=== PATIENT | female | born 1980 | race Caucasian/White ===

== ENCOUNTER 2020-09-08 09:37 | Inpatient (IN) ==
[2020-09-08] MEDS ORDERED: IOPAMIDOL 100 ML BOTTLE IV ONE (09:38)
[2020-09-08] MEDS ORDERED: KETOROLAC 30 MG/ML VIAL IV ONE (09:53)
[2020-09-08] MEDS ORDERED: 0.9 % SODIUM CHLORIDE 1,000 ML IV ONE (09:53)
--- NOTE | 2020-09-08 09:56 | Emergency Department Note ---
HPI General Chief complaint: Flank Pain Stated complaint: Flank pain, fever- started Time Seen by Provider: 09/08/20 09:40 Source: patient Mode of arrival: ambulatory History of Present Illness HPI Narrative: Narrative: 40-year-old female patient presents emergency department chief complaint of worsening right flank/lower quadrant abdominal pain x3 days. Patient admits to history of dull aching sensation to her right low back since late June. She was seen by her primary care provider who did a urinalysis that came back "good". She did not think much of it until this past when the pain increased exponentially. It changed character to more of a stabbing type pain that radiated into her right lower quadrant. She was evaluated in the [facility] yesterday (Thursday). The provider at that time did a urinalysis that did show clear yellow urine with positive proteinuria, positive nitrites, positive WBCs, small amount of microscopic blood, positive bacteria, positive mucus, this is being sent for a culture and sensitivity. She was started on Macrobid 100 mg twice daily for suspected UTI. Unfortunately, she mentions that her symptoms have worsened. She continues to have a fever. She is very apprehensive and mentions to me "I am really scared. There is something wrong". She denies history of renal calculi. She denies possibility being . ROS: Admits to systemic illness, fever, sweats, chills. Denies runny nose, sinus congestion, or cough. Denies shortness of breath. Denies retrosternal chest pain or palpitations. Admits to abdominal pain. Denies nausea, vomiting, or diarrhea. Patient admits she has not had a bowel movement in the last 2 days which is unusual for her. Denies gross hematuria or dysuria. Denies generalized or focal weakness. Related Data Previous Rx's Medication Instructions Recorded nitrofurantoin 1 cap PO Q12H 7 Days #14 cap 09/07/20 monohydrate/macrocrystals 100 mg capsule Allergies Allergy/AdvReac Type Severity Reaction Status Date / Time codeine Allergy Mild Vomiting Verified 09/07/20 08:01 Review of Systems ROS ROS Narrative: Narrative: All systems ED: reviewed and negative except as stated. [facility] Narrative Patient History Narrative: Narrative: Medical/Surgical/Family History All Active Problems (Updated 09/08/20 @ 12:48 by Daniel Álvarez PA-C) Pyelonephritis (Acute) Flank pain (Acute) UTI (urinary tract infection) (Acute) Viral syndrome (Acute) Nausea & vomiting (Acute) Medical History Flank pain (Acute) Nausea & vomiting (Acute) UTI (urinary tract infection) (Acute) Viral syndrome (Acute) Social History Smoking Status: Unknown if ever smoked Exam Narrative Narrative: Narrative: General General appearance: Present other (Well-developed, well-nourished, obese 62, 40-year-old female patient laying right lateral recumbent on the emergency room gurney obviously very uncomfortable and anxious. She is febrile with temperature 100.1 and mildly tachycardic with a heart rate of 103. She does meet SIRS criteria. Other vital signs are normal.) Head Head: Present normocephalic Eye Eye: Present normal appearance, PERRL and EOMI; Absent scleral icterus and conjunctival injection ENT ENT: Present normal oropharynx and mucous membranes moist Neck Neck: Present trachea midline; Absent lymphadenopathy Chest Chest: Present symmetric chest wall rise Respiratory Respiratory: Present normal lung sounds bilaterally; Absent respiratory distress, wheezes, stridor, accessory muscle use and prolonged expiratory phase Cardiovascular Cardiovascular: Present regular rate and normal rhythm; Absent systolic murmur and diastolic murmur Adbominal Abdominal: Present soft, tenderness, guarding, normal bowel sounds and tenderness at McBurney's Point; Absent distention, rebound, rigidity, organomegaly, psoas sign, obturator sign, heel tap sign and mass Expanded Abdominal Abdominal Tenderness: Present RLQ and moderate Extremities Extremities: Present normal inspection, full ROM and normal capillary refill; Absent pedal edema Back Back: Present normal inspection, full ROM and CVA tenderness (R); Absent CVA tenderness (L) Back 1 view image: 1. Area of pain during palpation. Neurological Neurological: Present alert, oriented X3 and normal gait; Absent motor sensory deficit Psychiatric Psychiatric: Present normal affect, anxious and tearful Skin Skin: Present warm (WNL), dry and normal color Course Course Course Narrative: The differential diagnosis of lower abdominal pain in the adult patient includes the following: Appendicitis, diverticulitis, nephrolithiasis, pyelonephritis, acute urinary retention, cystitis, infectious colitis. Patient presents now with 3-day history of right-sided flank/abdominal pain. She had evidence of UTI on exam yesterday. However, she does present with symptoms concerning for either pyelonephritis or renal stone. We are going to repeat the UA and get a urine test prior to imaging. We will also get other screening laboratory studies. We are going to get a contrast-enhanced CT scan of the patient's abdomen/pelvis looking for cause of her symptoms. Patient was given normal saline 1000 mL of the bolus. Patient was also given Toradol 30 mg IVP for pain. Reevaluation(s) Reevaluation #1: A review the patient's diagnostics of the following: BC WBC 14.7, all others normal limits. Lactic acid 1.6. CMP sodium 132, glucose 140, AST 40, all others normal limits. Procalcitonin 0.41. Urinalysis showing hazy yellow urine specific gravity 1.019, positive proteinuria, positive ketones, positive nitrites, positive urobilinogen, positive RBC, positive WBC, many bacteria, and mucus. Contrast-enhanced CT scan of the abdomen/pelvis showing findings consistent with right renal acute focal nephritis. There is also noted benign renal cyst. The appendix is not well-visualized there is no overt evidence of appendicitis. Upon reevaluation patient is resting a bit more comfortably. She does mention that the morphine was helpful. After reviewing the data I discussed these findings with the patient. She has the development of focal nephritis and likely developing pyelonephritis. Due to symptoms and significant worsening over the last 24hours is best to try to admit the patient here for ongoing care. Knowing this, I reached out to our hospitalist (Dr. Black) to discuss the case with him. Time: 12:21 Reevaluation #2: At this time Dr. Black says he is happy to admit the patient here to our facility. He did recommend starting the patient on Rocephin as well as vancomycin to broaden the antibiotic coverage. Patient was started on Rocephin 2 g in conjunction with vancomycin 1500 mg IV. At this time patient is resting more comfortably in emergency room [facility]. She verbalized understanding about the admission. All further treatment decisions, modalities, and ultimate patient disposition will be carried out by the hospitalist. Vital Signs Vital signs: Vital Signs Temperature 100.1 F H 09/08/20 09:38 Pulse Rate 103 H 09/08/20 09:38 Respiratory Rate 21 09/08/20 09:38 Blood Pressure 119/69 09/08/20 09:38 Pulse Oximetry (%) 97 09/08/20 09:38 Temperature 100.4 F H 09/08/20 14:49 Pulse Rate 104 H 09/08/20 14:49 Respiratory Rate 16 09/08/20 14:49 Blood Pressure 119/69 09/08/20 14:49 Pulse Oximetry (%) 99 09/08/20 14:49 MDM MDM Narrative Medical decision making narrative: Narrative: Lab Data Lab results reviewed: Yes I reviewed the patient's lab results. Result diagrams: 09/08/20 10:09 09/08/20 10:09 Labs: Lab Results 09/08/20 09/08/20 09/08/20 Range/Units 10:09 10:09 10:09 WBC 14.7 H (4.5-11.0) K/mcL RBC 4.50 (4.00-5.20) M/mcL Hgb 14.8 (12.0-15.0) g/dL Hct 43.7 (36.0-48.0) % MCV 97.1 (80.0-100.0) fL MCH 32.9 (26.0-34.0) pg MCHC 33.9 (31.0-36.0) g/dL RDW 12.3 (11.5-14.5) % Plt Count 232 (140-440) K/mcL MPV 9.2 (7.4-10.4) fL Neut % (Auto) 88.6 H (38.0-78.0) % Lymph % (Auto) 4.6 L (15.0-49.0) % [place] % (Auto) 6.5 (1.0-12.0) % Eos % (Auto) 0 (0.0-7.0) % Baso % (Auto) 0.3 (0.0-2.0) % Lymph # (Auto) 0.68 L (1.50-4.80) K/mcL [place] # (Auto) 0.96 H (0.10-0.90) K/mcL Eos # (Auto) 0 (0.00-0.70) K/mcL Baso # (Auto) 0.04 (0.00-0.20) K/mcL Absolute Neutrophils 13.02 H (1.80-8.00) K/mcL VBG Lactic Acid 1.6 (0.5-2.0) mmol/L Sodium 132 L (133-145) mmol/L Potassium 4.0 (3.3-5.1) mmol/L Chloride 97 (96-108) mmol/L Carbon Dioxide 24 (22-30) mmol/L Anion Gap 11.0 (8.0-16.0) BUN 10 (6-20) mg/dL Creatinine 0.8 (0.6-1.1) mg/dL GFR Calculation 93 Glucose 140 H (70-105) mg/dL Calcium 8.9 (8.6-10.4) mg/dL Total Bilirubin 0.6 (0.1-1.0) mg/dL AST 40 H (<32) U/L ALT 30 (<40) U/L Alkaline Phosphatase 67 (39-117) U/L Total Protein 7.1 (5.9-8.4) gm/dL Albumin 3.9 (3.2-5.2) gm/dL Globulin 3.2 (2.2-3.7) gm/dL Albumin/Globulin Ratio 1.2 (1.0-2.3) Procalcitonin (<0.10) ng/mL Urine Color Urine Appearance (Clear) Urine pH (5.0-9.0) Ur Specific [place] (1.000-1.035) Urine Protein (Negative) mg/dL Urine Glucose (UA) (Negative) mg/dL Urine Ketones (Negative) mg/dL Urine Occult Blood (Negative) mg/dL Urine Nitrate (Negative) Urine Bilirubin (Negative) mg/dL Urine Urobilinogen mg/dL Ur Leukocyte Esterase (Negative) /ug Urine RBC (0-3) /hpf Urine WBC (0-4) /hpf Ur Squamous Epith Cells (0-4) /hpf Ur Transition Epith Cell (0-2) /hpf Urine Bacteria (0) /hpf Hyaline Casts (0-2) /lph Urine Mucus (None) /hpf Ur Culture Indicated? 09/08/20 09/08/20 Range/Units 10:09 11:00 WBC (4.5-11.0) K/mcL RBC (4.00-5.20) M/mcL Hgb (12.0-15.0) g/dL Hct (36.0-48.0) % MCV (80.0-100.0) fL MCH (26.0-34.0) pg MCHC (31.0-36.0) g/dL RDW (11.5-14.5) % Plt Count (140-440) K/mcL MPV (7.4-10.4) fL Neut % (Auto) (38.0-78.0) % Lymph % (Auto) (15.0-49.0) % [place] % (Auto) (1.0-12.0) % Eos % (Auto) (0.0-7.0) % Baso % (Auto) (0.0-2.0) % Lymph # (Auto) (1.50-4.80) K/mcL [place] # (Auto) (0.10-0.90) K/mcL Eos # (Auto) (0.00-0.70) K/mcL Baso # (Auto) (0.00-0.20) K/mcL Absolute Neutrophils (1.80-8.00) K/mcL VBG Lactic Acid (0.5-2.0) mmol/L Sodium (133-145) mmol/L Potassium (3.3-5.1) mmol/L Chloride (96-108) mmol/L Carbon Dioxide (22-30) mmol/L Anion Gap (8.0-16.0) BUN (6-20) mg/dL Creatinine (0.6-1.1) mg/dL GFR Calculation Glucose (70-105) mg/dL Calcium (8.6-10.4) mg/dL Total Bilirubin (0.1-1.0) mg/dL AST (<32) U/L ALT (<40) U/L Alkaline Phosphatase (39-117) U/L Total Protein (5.9-8.4) gm/dL Albumin (3.2-5.2) gm/dL Globulin (2.2-3.7) gm/dL Albumin/Globulin Ratio (1.0-2.3) Procalcitonin 0.41 H (<0.10) ng/mL Urine Color Yellow Urine Appearance Hazy A (Clear) Urine pH 6.0 (5.0-9.0) Ur Specific [place] 1.019 (1.000-1.035) Urine Protein 30 A (Negative) mg/dL Urine Glucose (UA) Negative (Negative) mg/dL Urine Ketones 20 A (Negative) mg/dL Urine Occult Blood 0.20 (Negative) mg/dL Urine Nitrate Pos A (Negative) Urine Bilirubin Negative (Negative) mg/dL Urine Urobilinogen 4.0 A mg/dL Ur Leukocyte Esterase Negative (Negative) /ug Urine RBC 8 H (0-3) /hpf Urine WBC 12 H (0-4) /hpf Ur Squamous Epith Cells 3 (0-4) /hpf Ur Transition Epith Cell < 1 (0-2) /hpf Urine Bacteria Mod A (0) /hpf Hyaline Casts 2 (0-2) /lph Urine Mucus Many A (None) /hpf Ur Culture Indicated? No ED POC Tests ED POC Tests: BLAS - Influenza A Negative BLAS - Influenza B Negative BLAS - SARS Antigen Negative HCG POC Results Negative Radiology Data Radiology results reviewed: Yes I reviewed the patient's radiology results. Radiology results narrative: Ordering Physician: Daniel Álvarez PA-C Date of Service: 09/08/20 Procedure(s): CT abdomen pelvis w con Accession Number(s): [id number] INDICATION: Right flank/RLQ pain X 3 days. COMPARISON: None. TECHNIQUE: Axial images were obtained through the abdomen and pelvis. Sagittally and coronally reformatted images. 80 mL Isovue 370 injected intravenously. FINDINGS: Lung bases:Negative. No pulmonary parenchymal nodule. No pleural fluid or pericardial fluid Liver:Negative. No focal intrahepatic mass. No focal abnormality. Liver contour is smooth. No evidence for cirrhosis Gallbladder, bilary:Gallbladder is not present consistent with cholecystectomy. No dilated bile ducts Spleen:No splenomegaly. Normal enhancement of splenic and portal veins. Pancreas:No pancreatic mass. No peripancreatic abnormality Adrenal glands:Negative Kidneys, ureters, bladder: There are benign left renal cysts. No solid mass. No hydronephrosis. No obstructing or nonobstructing calculi. There is a right midpole anterior cyst measuring 8 mm. There is an irregular area of low density in the right kidney. This is mid to lower pole and medially and posteriorly located. Appearance is consistent with acute focal nephritis (lobar nephronia). There is no hydronephrosis or pyelonephrosis. No obstructing or nonobstructing calculi There is no hydroureter. No ureteral stone No bladder calculi or detectable mass Gastrointestinal:No detectable colonic mass. There is no diverticulitis. Small bowel is negative. No mechanical small bowel obstruction. Stomach and duodenum are unremarkable Appendix: The appendix is not well visualized. No evidence for appendicitis Vascular:Negative abdominal aorta. Superior mesenteric artery and celiac trunk are normal. Normal opacification of the inferior mesenteric artery Lymphatic:No retroperitoneal or mesenteric adenopathy Mesentery, peritoneum: No free intraperitoneal fluid. No mesenteric or retroperitoneal mass. Reproductive:Uterus is anteflexed. No adnexal mass Musculoskeletal: Degenerative disc disease at L5-S1. No lumbar compression fractures. Sacrum and pelvis are negative. No hip fracture. No abdominal wall or inguinal hernia IMPRESSION: 1. Findings consistent with right renal acute focal nephritis 2. Benign renal cysts 3. Nonvisualization of the appendix. No evidence for appendicitis The exam was performed using radiation dose optimization techniques including, but not limited to, automated exposure control, adjustment of the mA and/or kV according to patient size and use of iterative reconstruction technique. Interpreted and Authenticated by: Kirit Roy 09/08/20 Discharge Plan Patient/Caregiver Discharge Instructions Pt seen by ASSISTED LIVING NURSING DIRECTOR/PA only: Yes Clinical Impression: Pyelonephritis Patient Disposition: Xfer As Inpt ([facility]) Condition: Good Discharge Date/Time: 09/08/20 14:43
[2020-09-08 10:50] LABS: Basophils # (Auto) 0.04 K/mcL (0.00-0.20); Basophils % (Auto) 0.3 % (0.0-2.0); Eosinophils # (Auto) 0 K/mcL (0.00-0.70); Eosinophils % (Auto) 0 % (0.0-7.0); Hematocrit 43.7 % (36.0-48.0); Hemoglobin 14.8 g/dL (12.0-15.0); Lymphocytes # (Auto) 0.68 K/mcL (1.50-4.80); Lymphocytes % (Auto) 4.6 % (15.0-49.0); Mean Cell Volume 97.1 fL (80.0-100.0); Mean Corpuscular HGB Conc 33.9 g/dL (31.0-36.0); Mean Platelet Volume 9.2 fL (7.4-10.4); Monocytes # (Auto) 0.96 K/mcL (0.10-0.90); Monocytes % (Auto) 6.5 % (1.0-12.0); Neutrophils % (Auto) 88.6 % (38.0-78.0); Platelet Count 232 K/mcL (140-440); Red Cell Distribution Width 12.3 % (11.5-14.5); WBC 14.7 K/mcL (4.5-11.0)
[2020-09-08 11:15] LABS: ALT/SGPT 30 U/L (<40); AST/SGOT 40 U/L (<32); Albumin 3.9 gm/dL (3.2-5.2); Albumin/Globulin Ratio 1.2 (1.0-2.3); Alkaline Phosphatase 67 U/L (39-117); Bilirubin,Total 0.6 mg/dL (0.1-1.0); Blood Urea Nitrogen 10 mg/dL (6-20); Calcium 8.9 mg/dL (8.6-10.4); Carbon Dioxide 24 mmol/L (22-30); Chloride 97 mmol/L (96-108); Globulin 3.2 gm/dL (2.2-3.7); Glomerular Filtration Rate 93; Glucose 140 mg/dL (70-105)
--- NOTE | 2020-09-08 11:25 | Cat Scan Report ---
INDICATION: Right flank/RLQ pain X 3 days. COMPARISON: None. TECHNIQUE: Axial images were obtained through the abdomen and pelvis. Sagittally and coronally reformatted images. 80 mL Isovue 370 injected intravenously. FINDINGS: Lung bases:Negative. No pulmonary parenchymal nodule. No pleural fluid or pericardial fluid Liver:Negative. No focal intrahepatic mass. No focal abnormality. Liver contour is smooth. No evidence for cirrhosis Gallbladder, bilary:Gallbladder is not present consistent with cholecystectomy. No dilated bile ducts Spleen:No splenomegaly. Normal enhancement of splenic and portal veins. Pancreas:No pancreatic mass. No peripancreatic abnormality Adrenal glands:Negative Kidneys, ureters, bladder: There are benign left renal cysts. No solid mass. No hydronephrosis. No obstructing or nonobstructing calculi. There is a right midpole anterior cyst measuring 8 mm. There is an irregular area of low density in the right kidney. This is mid to lower pole and medially and posteriorly located. Appearance is consistent with acute focal nephritis (lobar nephronia). There is no hydronephrosis or pyelonephrosis. No obstructing or nonobstructing calculi There is no hydroureter. No ureteral stone No bladder calculi or detectable mass Gastrointestinal:No detectable colonic mass. There is no diverticulitis. Small bowel is negative. No mechanical small bowel obstruction. Stomach and duodenum are unremarkable Appendix: The appendix is not well visualized. No evidence for appendicitis Vascular:Negative abdominal aorta. Superior mesenteric artery and celiac trunk are normal. Normal opacification of the inferior mesenteric artery Lymphatic:No retroperitoneal or mesenteric adenopathy Mesentery, peritoneum: No free intraperitoneal fluid. No mesenteric or retroperitoneal mass. Reproductive:Uterus is anteflexed. No adnexal mass Musculoskeletal: Degenerative disc disease at L5-S1. No lumbar compression fractures. Sacrum and pelvis are negative. No hip fracture. No abdominal wall or inguinal hernia IMPRESSION: 1. Findings consistent with right renal acute focal nephritis 2. Benign renal cysts 3. Nonvisualization of the appendix. No evidence for appendicitis The exam was performed using radiation dose optimization techniques including, but not limited to, automated exposure control, adjustment of the mA and/or kV according to patient size and use of iterative reconstruction technique. Interpreted and Authenticated by: Kirit Roy 09/08/20
[2020-09-08] MEDS ORDERED: morphine 2 MG/ML VIAL IV ONE ×2 (11:31→13:25)
[2020-09-08 11:54] LABS: Appearance,Urine HAZY (Clear); Bacteria,Urine MOD /hpf (0); Bilirubin,Urine Negative (Negative); Color,Urine YELLOW; Culture Indicated,Urine No; Glucose,Urine (UA) Negative (Negative); Ketones,Urine 20 mg/dL (Negative); Leukocyte Esterase,Urine Negative /ug (Negative); Mucus,Urine MANY /hpf; Nitrate,Urine POS (Negative); Protein,Urine 30 mg/dL (Negative); Specific Gravity,Urine 1.019 (1.000-1.035); Urine Hyaline Cast 2 /lph (0-2); Urine RBC 8 /hpf (0-3); Urine Squamous Epithelial Cell 3 /hpf (0-4); Urine Transitional Epi Cells < 1 /hpf (0-2); Urine WBC 12 /hpf (0-4)
[2020-09-08] MEDS ORDERED: LEVOFLOXACIN 750 MG/150 ML BAG IV ONE (12:15)
[2020-09-08] MEDS ORDERED: VANCOMYCIN 1,500 MG in 0.9 % SODIUM CHLORIDE 500 ML IV ONE (12:42)
[2020-09-08] MEDS ORDERED: cefTRIAXone 2 GM in DEXTROSE 5% IN WATER 50 ML IV ONE (12:42)
--- NOTE | 2020-09-08 12:44 | Internal Med History&Physical ---
HPI History of Present Illness Patient information: Note initiated : 09/08/20 at 12:44 pm Service Date, if different from initiated Date: [] Patient: Gala Krishnamurthy a 40 y/o F admitted on for Flank pain, fever- started . Chief Complaint: [ History of present illness: Ms. Krishnamurthy is a 40 year old F fairly healthy with no prior medical issues will start experiencing right-sided flank pain grade 8 out of 10/without radiation and made worse with movement sharp stabbing type along with associated nausea/loss of appetite over the last 5 days. She was seen at the urgent care and was prescribed nitrofurantoin for UTI. However symptoms continued to progress with fever, weakness, pain. With increasing concerns she presents to the ER. Initial work-up was consistent with sepsis with white count 14.7/pyuria. Patient was started on antibiotic coverage after CT abdomen revealed evidence of focal nephritis. Cultures were drawn. Hospital service was consulted. At the time of my evaluation patient is very anxious. She was able to answer most the questions. She endorses history as above. She denies hematuria/blood in her stool/prior hospitalization or any prior health issues. Review of systems 10 point review system was performed and is negative except for ones discussed above PFSH PFSH All Active Problems (Updated 09/08/20 @ 12:48 by Daniel Álvarez PA-C) Pyelonephritis (Acute) Flank pain (Acute) UTI (urinary tract infection) (Acute) Viral syndrome (Acute) Nausea & vomiting (Acute) Medical History Flank pain (Acute) Nausea & vomiting (Acute) UTI (urinary tract infection) (Acute) Viral syndrome (Acute) Social History smoking status: Unknown if ever smoked MEDS/ALLERGIES Home Medications and Allergies Home Medications Medication Instructions Recorded Confirmed Type nitrofurantoin 1 cap PO Q12H 7 Days #14 cap 09/07/20 09/07/20 Rx monohydrate/macrocrystals 100 mg capsule Allergies Allergy/AdvReac Type Severity Reaction Status Date / Time codeine Allergy Mild Vomiting Verified 09/07/20 08:01 EXAM Constitutional Vitals: Temp Pulse Resp BP Pulse Ox 100.1 F H 103 H 21 119/69 97 02/13/21 09:38 09/08/20 09:38 09/08/20 09:38 09/08/20 09:38 09/08/20 09:38 Anxious and in distress Head normocephalic No ear nose discharge Eye movement symmetrical Neck no obvious swelling Nonlabored breathing Nondistended abdomen Skin no suspicious lesion Psych anxious, no hallucination Neuro GCS 15 DATA Data Completed and Pending Labs: Labs from last 24 hours 09/08/20 09/08/20 09/08/20 11:00 10:09 10:09 WBC RBC Hgb Hct MCV MCH MCHC RDW Plt Count MPV Neut % (Auto) Lymph % (Auto) Branch % (Auto) Eos % (Auto) Baso % (Auto) Lymph # (Auto) Branch # (Auto) Eos # (Auto) Baso # (Auto) Absolute Neutrophils VBG Lactic Acid 1.6 Sodium Potassium Chloride Carbon Dioxide Anion Gap BUN Creatinine GFR Calculation Glucose Calcium Total Bilirubin AST ALT Alkaline Phosphatase Total Protein Albumin Globulin Albumin/Globulin Ratio Procalcitonin 0.41 H Urine Color Yellow Urine Appearance Hazy A Urine pH 6.0 Ur Specific [place] 1.019 Urine Protein 30 A Urine Glucose (UA) Negative Urine Ketones 20 A Urine Occult Blood 0.20 Urine Nitrate Pos A Urine Bilirubin Negative Urine Urobilinogen 4.0 A Ur Leukocyte Esterase Negative Urine RBC 8 H Urine WBC 12 H Ur Squamous Epith Cells 3 Ur Transition Epith Cell < 1 Urine Bacteria Mod A Hyaline Casts 2 Urine Mucus Many A Ur Culture Indicated? No 09/08/20 09/08/20 10:09 10:09 WBC 14.7 H RBC 4.50 Hgb 14.8 Hct 43.7 MCV 97.1 MCH 32.9 MCHC 33.9 RDW 12.3 Plt Count 232 MPV 9.2 Neut % (Auto) 88.6 H Lymph % (Auto) 4.6 L [place] % (Auto) 6.5 Eos % (Auto) 0 Baso % (Auto) 0.3 Lymph # (Auto) 0.68 L [place] # (Auto) 0.96 H Eos # (Auto) 0 Baso # (Auto) 0.04 Absolute Neutrophils 13.02 H VBG Lactic Acid Sodium 132 L Potassium 4.0 Chloride 97 Carbon Dioxide 24 Anion Gap 11.0 BUN 10 Creatinine 0.8 GFR Calculation 93 Glucose 140 H Calcium 8.9 Total Bilirubin 0.6 AST 40 H ALT 30 Alkaline Phosphatase 67 Total Protein 7.1 Albumin 3.9 Globulin 3.2 Albumin/Globulin Ratio 1.2 Procalcitonin Urine Color Urine Appearance Urine pH Ur Specific [place] Urine Protein Urine Glucose (UA) Urine Ketones Urine Occult Blood Urine Nitrate Urine Bilirubin Urine Urobilinogen Ur Leukocyte Esterase Urine RBC Urine WBC Ur Squamous Epith Cells Ur Transition Epith Cell Urine Bacteria Hyaline Casts Urine Mucus Ur Culture Indicated? A/P Narrative A/P Narrative: * Severe sepsis secondary to acute nephritis. Start antibiotic coverage. Continue management guidelines. Crystalloid/cultures * Acute nephritis-antibiotic coverage and de-escalate based on urine culture results * Pain management on as needed Toradol/acetaminophen/opioids * Prophylax Heparin Plan * Inpatient admission * Antibiotic coverage * Pain management * Nutrition support Time Spent With Patient Time: Total time spent is greater than 50% in coordination of care (as documented) at patient's floor/unit and/or counseling patient:
[2020-09-08] MEDS ORDERED: POTASSIUM CHLORIDE 20 MEQ PACKET PO PRN (15:02)
[2020-09-08] MEDS ORDERED: ACETAMINOPHEN 325 MG TABLET PO PRN (15:02)
[2020-09-08] MEDS ORDERED: VANCOMYCIN PER PHARMACY IV SCH (15:02)
[2020-09-08] MEDS ORDERED: ONDANSETRON 4 MG/2 ML VIAL IV PRN (15:02)
[2020-09-08] MEDS ORDERED: ONDANSETRON 4 MG ODT TABLET SL PRN (15:02)
[2020-09-08] MEDS ORDERED: POLYETHYLENE GLYCOL 3350 17 GM PACKET PO PRN (15:02)
[2020-09-08] MEDS ORDERED: MAGNESIUM SULFATE 2 GM/50 ML BAG IV PRN (15:02)
[2020-09-08] MEDS ORDERED: BISACODYL 10 MG SUPP.RECT PR PRN (15:02)
[2020-09-08] MEDS: 0.9 % SODIUM CHLORIDE 1,000 ML IV SCH (15:12)
[2020-09-08] MEDS: 0.9 % SODIUM CHLORIDE 10 ML SYRINGE IV SCH ×2 (15:14→22:09)
[2020-09-08] MEDS: KETOROLAC 15 MG/ML VIAL IV PRN (15:19)
[2020-09-08] MEDS: HYDROmorphone 0.5 MG/0.5 ML SYRINGE IV PRN ×2 (16:32→22:36)
[2020-09-08] MEDS ORDERED: HYDROmorphone 0.5 MG/0.5 ML SYRINGE ONE (16:38)
[2020-09-08] MEDS ORDERED: HYDROcodone/APAP 5/325MG TABLET PO ONE (16:38)
[2020-09-08] MEDS: SENNOSIDES/DOCUSATE SODIUM 1 TAB TABLET PO SCH (20:17)
[2020-09-08] MEDS: DOCUSATE SODIUM 100 MG CAPSULE PO SCH (20:17)
[2020-09-08] MEDS: HEPARIN 5,000 UNIT/ML VIAL SQ SCH (20:18)
[2020-09-08] MEDS ORDERED: VANCOMYCIN 1,000 MG in 0.9 % SODIUM CHLORIDE 250 ML IV ONE (22:00)
[2020-09-08] MEDS: HYDROcodone/APAP 5/325MG TABLET PO PRN (22:36)
[2020-09-08] MEDS: MELATONIN 3 MG TABLET PO PRN (22:41)
[2020-09-09] MEDS: ACETAMINOPHEN 650 MG/65 ML BAG IV PRN ×2 (05:32→21:30)
[2020-09-09] MEDS: 0.9 % SODIUM CHLORIDE 10 ML SYRINGE IV SCH ×3 (05:33→21:32)
[2020-09-09 06:43] LABS: Basophils # (Auto) 0.02 K/mcL (0.00-0.20); Basophils % (Auto) 0.3 % (0.0-2.0); Eosinophils # (Auto) 0.01 K/mcL (0.00-0.70); Eosinophils % (Auto) 0.1 % (0.0-7.0); Hematocrit 36.9 % (36.0-48.0); Hemoglobin 12.4 g/dL (12.0-15.0); Lymphocytes # (Auto) 0.83 K/mcL (1.50-4.80); Lymphocytes % (Auto) 11.1 % (15.0-49.0); Mean Cell Volume 97.9 fL (80.0-100.0); Mean Corpuscular HGB Conc 33.6 g/dL (31.0-36.0); Mean Platelet Volume 10.1 fL (7.4-10.4); Monocytes # (Auto) 0.73 K/mcL (0.10-0.90); Monocytes % (Auto) 9.8 % (1.0-12.0); Neutrophils % (Auto) 78.7 % (38.0-78.0); Platelet Count 189 K/mcL (140-440); RBC 3.77 M/mcL (4.00-5.20); Red Cell Distribution Width 12.5 % (11.5-14.5); WBC 7.5 K/mcL (4.5-11.0)
[2020-09-09 07:02] LABS: ALT/SGPT 26 U/L (<40); AST/SGOT 27 U/L (<32); Albumin 3.2 gm/dL (3.2-5.2); Albumin/Globulin Ratio 1.1 (1.0-2.3); Alkaline Phosphatase 61 U/L (39-117); Bilirubin,Direct < 0.2 mg/dL (<0.3); Bilirubin,Total 0.4 mg/dL (0.1-1.0); Blood Urea Nitrogen 8 mg/dL (6-20); Carbon Dioxide 23 mmol/L (22-30); Chloride 101 mmol/L (96-108); Glomerular Filtration Rate 110; Glucose 102 mg/dL (70-105); Lactate Dehydrogenase 179 U/L (135-225); Phosphorous 2.1 mg/dL (2.5-4.5); Triglycerides 114 mg/dL (<150); Uric Acid 3.7 mg/dL (2.5-8.0)
[2020-09-09] MEDS: DOCUSATE SODIUM 100 MG CAPSULE PO SCH (07:56)
[2020-09-09] MEDS: MULTIVIT,THER IRON,CA,FA & MIN 1 TABLET PO SCH (07:56)
[2020-09-09] MEDS: HYDROcodone/APAP 5/325MG TABLET PO PRN ×2 (07:57→12:06)
[2020-09-09] MEDS: HYDROmorphone 0.5 MG/0.5 ML SYRINGE IV PRN (07:58)
[2020-09-09] MEDS: cefTRIAXone 2 GM in DEXTROSE 5% IN WATER 50 ML IV SCH (07:59)
[2020-09-09] MEDS: HEPARIN 5,000 UNIT/ML VIAL SQ SCH ×2 (07:59→21:27)
--- NOTE | 2020-09-09 08:14 | Internal Med Progress Note ---
SUBJECTIVE Subjective Patient information: Note initiated : 09/09/20 at 8:13 am Service Date, if different from initiated Date: [] Patient: Gala Krishnamurthy a 40 y/o F admitted on 09/08/20 for Flank pain, fever- started . Chief Complaint: [] Interval history: History of present illness: Ms. Krishnamurthy is a 40 year old F fairly healthy with no prior medical issues will start experiencing right-sided flank pain grade 8 out of 10/without radiation and made worse with movement sharp stabbing type along with associated nausea/loss of appetite over the last 5 days. She was seen at the urgent care and was prescribed nitrofurantoin for UTI. However symptoms continued to progress with fever, weakness, pain. With increasing concerns she presents to the ER. Initial work-up was consistent with sepsis with white count 14.7/pyuria. Patient was started on antibiotic coverage after CT abdomen revealed evidence of focal nephritis. Cultures were drawn. Hospital service was consulted. At the time of my evaluation patient is very anxious. She was able to answer most the questions. She endorses history as above. She denies hematuria/blood in her stool/prior hospitalization or any prior health issues. 09/09-patient started on antibiotic coverage. Overnight clinically improving. T-max 100.5. White count downtrending now at 7.5 however gram-positive bacteremia on blood cultures. Surveillance cultures pending. Likely source acute nephritis. Remains fairly anxious. Continue Rocephin/vancomycin until sensitivities available. Phosphorus 2.1, start replacement Constitutional Vitals: Vital Signs Temp Pulse Resp BP Pulse Ox 98.9 F 96 H 20 104/68 92 09/09/20 06:52 09/09/20 06:52 09/09/20 06:52 09/09/20 06:52 09/09/20 06:52 Period Temp Pulse Resp BP Sys/Morris Pulse Ox Last 24 Hr 98.2 F-101.6 F 82-115 16-24 104-157/65-79 91-99 Intake and Output 09/08/20 09/09/20 09/09/20 21:59 05:59 13:59 Intake Total 1950 1050 65 Output Total 650 300 Balance 1300 750 65 Weight 86.727 kg Alert oriented but anxious Nonlabored breathing Nondistended abdomen Intake & Output: Intake & Output 09/08/20 09/09/20 09/09/20 21:59 05:59 13:59 Intake Total 1950 1050 65 Output Total 650 300 Balance 1300 750 65 Weight 86.727 kg Intake: IV 1700 250 65 Sodium Chloride 0.9% 1,000 ml @ 1000 50 mls/hr IV .Q20H [facility] Rx#: [id number] Vancomycin 1,000 mg In Sodium 250 Chloride 0.9% 250 ml @ 250 mls/ hr IV ONCE ONE Rx#:[id number] Vancomycin 1,500 mg In Sodium 500 Chloride 0.9% 500 ml @ 333.3 mls/hr IV ONCE ONE Rx#: [id number] Rocephin 2 gm In Dextrose 5% in 50 Water 50 ml @ 100 mls/hr IV ONCE ONE Rx#:[id number] Oral 250 800 Output: Void Amount 650 300 Other: Meal Dinner Percent of Meal Consumed 50% Urine Appearance Clear Clear Urine Color Bright Yellow Bright Yellow Urine Odor Normal OBJ DATA Labs CBC & Chem 7: 09/09/20 05:33 09/09/20 05:33 Labs: Abnormal Lab Results 09/09/20 09/09/20 09/08/20 05:33 05:33 11:00 WBC RBC 3.77 L Neut % (Auto) 78.7 H Lymph % (Auto) 11.1 L Lymph # (Auto) 0.83 L [place] # (Auto) Absolute Neutrophils Sodium Glucose Calcium 8.0 L Phosphorus 2.1 L GGT 68 H AST Procalcitonin Urine Appearance Hazy A Urine Protein 30 A Urine Ketones 20 A Urine Nitrate Pos A Urine Urobilinogen 4.0 A Urine RBC 8 H Urine WBC 12 H Urine Bacteria Mod A Urine Mucus Many A 09/08/20 09/08/20 09/08/20 10:09 10:09 10:09 WBC 14.7 H RBC Neut % (Auto) 88.6 H Lymph % (Auto) 4.6 L Lymph # (Auto) 0.68 L [place] # (Auto) 0.96 H Absolute Neutrophils 13.02 H Sodium 132 L Glucose 140 H Calcium Phosphorus GGT AST 40 H Procalcitonin 0.41 H Urine Appearance Urine Protein Urine Ketones Urine Nitrate Urine Urobilinogen Urine RBC Urine WBC Urine Bacteria Urine Mucus Meds: Medications Acetaminophen (Tylenol) 650 mg PO Q4-6HP PRN; Protocol PRN Reason: Per Pain Protocol/Fever > 101 Hydrocodone Bitart/Acetaminophen ([place] 5/325mg) 1 tab PO Q4-6HP PRN; Protocol PRN Reason: Per Pain Protocol Last Admin: 09/09/20 07:57 Dose: 1 tab Documented by: Bisacodyl (Dulcolax) 10 mg [place] Q2-3DAYS PRN PRN Reason: Constipation Docusate Sodium (Colace) 100 mg PO BID [facility] Last Admin: 09/09/20 07:56 Dose: 100 mg Documented by: Heparin Sodium (Porcine) (Heparin) 5,000 unit SQ Q12 [facility] Last Admin: 09/09/20 07:59 Dose: 5,000 unit Documented by: Hydromorphone HCl (Dilaudid) 0.5 mg IV Q4HP PRN; Protocol PRN Reason: Per Pain Protocol Last Admin: 09/09/20 07:58 Dose: 0.5 mg Documented by: Acetaminophen (Ofirmev) 650 mg in 65 mls @ 130 mls/hr IV Q6HP PRN; Protocol PRN Reason: Per Pain Protocol/Fever > 101 Last Infusion: 09/09/20 06:05 Dose: Infused Documented by: Magnesium Sulfate (Magnesium Sulfate) 2 gm in 50 mls @ 50 mls/hr IV UD PRN PRN Reason: MG = or < 1.7 Sodium Chloride (Sodium Chloride 0.9%) 1,000 mls @ 50 mls/hr IV .Q20H [facility] Stop: 09/11/20 03:01 Last Infusion: 09/08/20 16:17 Dose: Infused Documented by: Ceftriaxone Sodium 2 gm/ (Dextrose) 50 mls @ 100 mls/hr IV Q24H [facility]; Protocol Last Admin: 09/09/20 07:59 Dose: 100 mls/hr Documented by: Vancomycin HCl 1,500 mg/ (Sodium Chloride) 500 mls @ 333.3 mls/hr IV Q12H [facility] Iron Carb/Multivit/[place]/Folic Acid (Multivitamin W/Minerals) 1 tab PO DAILY [facility] Last Admin: 09/09/20 07:56 Dose: 1 tab Documented by: Ketorolac Tromethamine (Toradol) 15 mg IV Q4-6HP PRN PRN Reason: Per Pain Protocol Stop: 09/10/20 12:42 Last Admin: 02/13/21 15:19 Dose: 15 mg Documented by: Melatonin (Melatonin 3mg Tablet) 3 mg PO HSP PRN PRN Reason: Insomnia Last Admin: 09/08/20 22:41 Dose: 3 mg Documented by: Ondansetron HCl (Zofran Odt) 4 mg SL Q4-6HP PRN; Protocol PRN Reason: Nausea And Vomiting Ondansetron HCl (Zofran) 4 mg IV Q4-6HP PRN; Protocol PRN Reason: Nausea And Vomiting Polyethylene Glycol (Miralax) 17 gm PO DAILYP PRN PRN Reason: Constipation Potassium Chloride (Klor-Con) 40 meq PO DAILYP PRN PRN Reason: K+ < 3.5 Senna/Docusate Sodium (Senna Plus Tablet) 1 tab PO HS [facility] Last Admin: 09/08/20 20:17 Dose: 1 tab Documented by: Sodium Chloride (Saline Flush) 10 ml IV Q8 [facility] Last Admin: 09/09/20 05:33 Dose: Not Given Documented by: Vancomycin HCl (Vancomycin Per Pharmacy) 1 order IV UD [facility]; Protocol A/P Narrative A/P Narrative: * Severe sepsis secondary to gram-positive bacteremia. Continue antibiotic coverage/surveillance cultures. If persistent bacteremia or surveillance cultures perform source evaluation including echocardiogram. * Acute bacterial nephritis-on antibiotic coverage and de-escalate based on urine culture results * Pain management on as needed Toradol/acetaminophen/opioids * Prophylax Heparin Plan * Continue antibiotic coverage * Echocardiogram/further source evaluation if persistent bacteremia on surveillance cultures * Pain management * Time Spent With Patient Time: Total time spent is greater than 50% in coordination of care (as documented) at patient's floor/unit and/or counseling patient:
[2020-09-09] MEDS ORDERED: NEUTRA PHOS 1 PACKET PO PRN (08:17)
[2020-09-09] MEDS: VANCOMYCIN 1,500 MG in 0.9 % SODIUM CHLORIDE 500 ML IV SCH ×2 (10:15→21:50)
[2020-09-09] MEDS: 0.9 % SODIUM CHLORIDE 1,000 ML IV SCH ×2 (10:48→13:36)
--- NOTE | 2020-09-09 12:51 | Internal Med Progress Note ---
SUBJECTIVE Subjective Patient information: Note initiated : 09/09/20 at 12:44 pm Service Date, if different from initiated Date: [] Patient: Gala Krishnamurthy a 40 y/o F admitted on 09/08/20 for Flank pain, fever- started . Chief Complaint: [] Interval history: History of present illness: Ms. Krishnamurthy is a 40 year old F fairly healthy with no prior medical issues will start experiencing right-sided flank pain grade 8 out of 10/without radiation and made worse with movement sharp stabbing type along with associated nausea/loss of appetite over the last 5 days. She was seen at the urgent care and was prescribed nitrofurantoin for UTI. However symptoms continued to progress with fever, weakness, pain. With increasing concerns she presents to the ER. Initial work-up was consistent with sepsis with white count 14.7/pyuria. Patient was started on antibiotic coverage after CT abdomen revealed evidence of focal nephritis. Cultures were drawn. Hospital service was consulted. At the time of my evaluation patient is very anxious. She was able to answer most the questions. She endorses history as above. She denies hematuria/blood in her stool/prior hospitalization or any prior health issues. 09/09-patient started on antibiotic coverage. Overnight clinically improving. T-max 100.5. White count downtrending now at 7.5 however gram-positive bacteremia on blood cultures. Surveillance cultures pending. Likely source acute nephritis. Remains fairly anxious. Continue Rocephin/vancomycin until sensitivities available. Phosphorus 2.1, start replacement Constitutional Vitals: Vital Signs Temp Pulse Resp BP Pulse Ox 97.3 F 79 20 112/72 96 09/09/20 11:00 09/09/20 11:00 09/09/20 11:00 09/09/20 11:00 09/09/20 11:00 Period Temp Pulse Resp BP Sys/Morris Pulse Ox Last 24 Hr 97.3 F-101.6 F 79-115 16-24 104-157/65-79 91-99 Intake and Output 09/08/20 09/09/20 09/09/20 21:59 05:59 13:59 Intake Total 1950 1050 355 Output Total 650 300 800 Balance 1300 750 -445 Weight 86.727 kg Intake & Output: Intake & Output 09/08/20 09/09/20 09/09/20 21:59 05:59 13:59 Intake Total 1950 1050 355 Output Total 650 300 800 Balance 1300 750 -445 Weight 86.727 kg Intake: IV 1700 250 115 Sodium Chloride 0.9% 1,000 ml @ 1000 50 mls/hr IV .Q20H [facility] Rx#: [id number] Vancomycin 1,000 mg In Sodium 250 Chloride 0.9% 250 ml @ 250 mls/ hr IV ONCE ONE Rx#:[id number] Vancomycin 1,500 mg In Sodium 500 Chloride 0.9% 500 ml @ 333.3 mls/hr IV ONCE ONE Rx#: [id number] Rocephin 2 gm In Dextrose 5% in 50 50 Water 50 ml @ 100 mls/hr IV Q24H [facility] Rx#:[id number] Oral 250 800 240 Output: Void Amount 650 300 800 Other: Meal Dinner Breakfast Percent of Meal Consumed 50% 75% Feeding Ability Independent Urine Appearance Clear Clear Clear Urine Color Bright Yellow Bright Yellow Dark Yellow Urine Odor Normal Exam: General: Alert, Awake, No acute Distress, obese Eyes/N/T: EOMI, Head/Neck: neck supple, CV: RRR, No murmurs, normal s1/s2 Pulm: Clear b/l, no wheezing/rhonchi/rales Abd: soft, +BS x4 Ext: no clubbing/cyanosis/edema Neuro: Alert, no focal deficits, moves all extremities, Skin: warm/dry OBJ DATA Labs CBC & Chem 7: 09/09/20 05:33 09/09/20 05:33 Labs: Abnormal Lab Results 09/09/20 09/09/20 09/08/20 05:33 05:33 11:00 WBC RBC 3.77 L Neut % (Auto) 78.7 H Lymph % (Auto) 11.1 L Lymph # (Auto) 0.83 L [place] # (Auto) Absolute Neutrophils Sodium Glucose Calcium 8.0 L Phosphorus 2.1 L GGT 68 H AST Procalcitonin Urine Appearance Hazy A Urine Protein 30 A Urine Ketones 20 A Urine Nitrate Pos A Urine Urobilinogen 4.0 A Urine RBC 8 H Urine WBC 12 H Urine Bacteria Mod A Urine Mucus Many A 09/08/20 09/08/20 09/08/20 10:09 10:09 10:09 WBC 14.7 H RBC Neut % (Auto) 88.6 H Lymph % (Auto) 4.6 L Lymph # (Auto) 0.68 L [place] # (Auto) 0.96 H Absolute Neutrophils 13.02 H Sodium 132 L Glucose 140 H Calcium Phosphorus GGT AST 40 H Procalcitonin 0.41 H Urine Appearance Urine Protein Urine Ketones Urine Nitrate Urine Urobilinogen Urine RBC Urine WBC Urine Bacteria Urine Mucus Meds: Medications Acetaminophen (Tylenol) 650 mg PO Q4-6HP PRN; Protocol PRN Reason: Per Pain Protocol/Fever > 101 Hydrocodone Bitart/Acetaminophen ([place] 5/325mg) 1 tab PO Q4-6HP PRN; Protocol PRN Reason: Per Pain Protocol Last Admin: 09/09/20 12:06 Dose: 1 tab Documented by: Bisacodyl (Dulcolax) 10 mg [place] Q2-3DAYS PRN PRN Reason: Constipation Docusate Sodium (Colace) 100 mg PO BID [facility] Last Admin: 09/09/20 07:56 Dose: 100 mg Documented by: Heparin Sodium (Porcine) (Heparin) 5,000 unit SQ Q12 [facility] Last Admin: 09/09/20 07:59 Dose: 5,000 unit Documented by: Hydromorphone HCl (Dilaudid) 0.5 mg IV Q4HP PRN; Protocol PRN Reason: Per Pain Protocol Last Admin: 09/09/20 07:58 Dose: 0.5 mg Documented by: Acetaminophen (Ofirmev) 650 mg in 65 mls @ 130 mls/hr IV Q6HP PRN; Protocol PRN Reason: Per Pain Protocol/Fever > 101 Last Infusion: 09/09/20 06:05 Dose: Infused Documented by: Magnesium Sulfate (Magnesium Sulfate) 2 gm in 50 mls @ 50 mls/hr IV UD PRN PRN Reason: MG = or < 1.7 Last Admin: 09/09/20 10:17 Dose: 50 mls/hr Documented by: Sodium Chloride (Sodium Chloride 0.9%) 1,000 mls @ 50 mls/hr IV .Q20H [facility] Stop: 09/11/20 03:01 Last Admin: 09/09/20 10:48 Dose: Not Given Documented by: Ceftriaxone Sodium 2 gm/ (Dextrose) 50 mls @ 100 mls/hr IV Q24H [facility]; Protocol Last Infusion: 09/09/20 10:48 Dose: Infused Documented by: Vancomycin HCl 1,500 mg/ (Sodium Chloride) 500 mls @ 333.3 mls/hr IV Q12H [facility] Last Admin: 09/09/20 10:15 Dose: 333.3 mls/hr Documented by: Iron Carb/Multivit/[place]/Folic Acid (Multivitamin W/Minerals) 1 tab PO DAILY [facility] Last Admin: 09/09/20 07:56 Dose: 1 tab Documented by: Ketorolac Tromethamine (Toradol) 15 mg IV Q4-6HP PRN PRN Reason: Per Pain Protocol Stop: 09/10/20 12:42 Last Admin: 09/08/20 15:19 Dose: 15 mg Documented by: Melatonin (Melatonin 3mg Tablet) 3 mg PO HSP PRN PRN Reason: Insomnia Last Admin: 09/08/20 22:41 Dose: 3 mg Documented by: Ondansetron HCl (Zofran Odt) 4 mg SL Q4-6HP PRN; Protocol PRN Reason: Nausea And Vomiting Ondansetron HCl (Zofran) 4 mg IV Q4-6HP PRN; Protocol PRN Reason: Nausea And Vomiting Polyethylene Glycol (Miralax) 17 gm PO DAILYP PRN PRN Reason: Constipation Potassium Chloride (Klor-Con) 40 meq PO DAILYP PRN PRN Reason: K+ < 3.5 Potassium/Phosphorus/Sodium (Neutra Phos) 2 packet PO DAILY PRN PRN Reason: PHOS <2.5 Last Admin: 09/09/20 10:16 Dose: 2 packet Documented by: Senna/Docusate Sodium (Senna Plus Tablet) 1 tab PO HS [facility] Last Admin: 09/08/20 20:17 Dose: 1 tab Documented by: Sodium Chloride (Saline Flush) 10 ml IV Q8 [facility] Last Admin: 09/09/20 05:33 Dose: Not Given Documented by: Vancomycin HCl (Vancomycin Per Pharmacy) 1 order IV UD [facility]; Protocol A/P Narrative A/P Narrative: A: *Severe sepsis: 2/2 focal nephritis & ?GPC -febrile; leukocytosis resolved *Acute bacterial nephritis/cystitis: -UC with GNB *?GPC: *obese Plan: -Continue antibiotic coverage -Echocardiogram pending, f/u BC pending -Pain management on as needed Toradol/acetaminophen/opioids -ppx: Prophylax Heparin Time Spent With Patient Time: Total time spent is greater than 50% in coordination of care (as do cumented) at patient's floor/unit and/or counseling patient:
[2020-09-09] MEDS: oxyCODONE/APAP 5/325MG TABLET PO PRN ×2 (17:56→22:50)
[2020-09-09] MEDS: MELATONIN 3 MG TABLET PO PRN (21:32)
[2020-09-09] MEDS: SENNOSIDES/DOCUSATE SODIUM 1 TAB TABLET PO SCH (21:32)
[2020-09-10] MEDS: oxyCODONE/APAP 5/325MG TABLET PO PRN ×3 (03:37→13:20)
[2020-09-10] MEDS: KETOROLAC 15 MG/ML VIAL IV PRN ×2 (03:42→09:23)
[2020-09-10] MEDS: 0.9 % SODIUM CHLORIDE 10 ML SYRINGE IV SCH ×2 (04:47→14:09)
[2020-09-10 06:36] LABS: Basophils # (Auto) 0.04 K/mcL (0.00-0.20); Basophils % (Auto) 0.6 % (0.0-2.0); Eosinophils # (Auto) 0.11 K/mcL (0.00-0.70); Eosinophils % (Auto) 1.7 % (0.0-7.0); Hemoglobin 12.2 g/dL (12.0-15.0); Lymphocytes # (Auto) 1.13 K/mcL (1.50-4.80); Lymphocytes % (Auto) 17.7 % (15.0-49.0); Mean Cell Volume 98.1 fL (80.0-100.0); Mean Corpuscular HGB Conc 33.9 g/dL (31.0-36.0); Monocytes # (Auto) 0.76 K/mcL (0.10-0.90); Monocytes % (Auto) 11.9 % (1.0-12.0); Neutrophils % (Auto) 68.1 % (38.0-78.0); Platelet Count 183 K/mcL (140-440); RBC 3.67 M/mcL (4.00-5.20); Red Cell Distribution Width 12.6 % (11.5-14.5); WBC 6.4 K/mcL (4.5-11.0)
[2020-09-10 06:58] LABS: ALT/SGPT 29 U/L (<40); AST/SGOT 30 U/L (<32); Albumin/Globulin Ratio 1.1 (1.0-2.3); Alkaline Phosphatase 60 U/L (39-117); Bilirubin,Direct < 0.2 mg/dL (<0.3); Bilirubin,Total 0.2 mg/dL (0.1-1.0); Blood Urea Nitrogen 6 mg/dL (6-20); Calcium 8.1 mg/dL (8.6-10.4); Carbon Dioxide 23 mmol/L (22-30); Chloride 106 mmol/L (96-108); Globulin 2.8 gm/dL (2.2-3.7); Glomerular Filtration Rate 122; Glucose 107 mg/dL (70-105); Lactate Dehydrogenase 209 U/L (135-225); Phosphorous 2.8 mg/dL (2.5-4.5); Triglycerides 139 mg/dL (<150); Uric Acid 3.7 mg/dL (2.5-8.0)
--- NOTE | 2020-09-10 07:09 | Internal Med Progress Note ---
SUBJECTIVE Subjective Patient information: Note initiated : 09/10/20 at 7:07 am Service Date, if different from initiated Date: [] Patient: Gala Krishnamurthy a 40 y/o F admitted on 09/08/20 for Flank pain, fever- started . Chief Complaint: [] Interval history: History of present illness: Ms. Krishnamurthy is a 40 year old F fairly healthy with no prior medical issues will start experiencing right-sided flank pain grade 8 out of 10/without radiation and made worse with movement sharp stabbing type along with associated nausea/loss of appetite over the last 5 days. She was seen at the urgent care and was prescribed nitrofurantoin for UTI. However symptoms continued to progress with fever, weakness, pain. With increasing concerns she presents to the ER. Initial work-up was consistent with sepsis with white count 14.7/pyuria. Patient was started on antibiotic coverage after CT abdomen revealed evidence of focal nephritis. Cultures were drawn. Hospital service was consulted. At the time of my evaluation patient is very anxious. She was able to answer most the questions. She endorses history as above. She denies hematuria/blood in her stool/prior hospitalization or any prior health issues. 09/09-patient started on antibiotic coverage. Overnight clinically improving. T-max 100.5. White count downtrending now at 7.5 however gram-positive bacteremia on blood cultures. Surveillance cultures pending. Likely source acute nephritis. Remains fairly anxious. Continue Rocephin/vancomycin until sensitivities available. Phosphorus 2.1, start replacement. 09/10 States hard to sleep in the hospital. Does have some right flank discomfort. Headaches, otherwise no complaints. Review of Systems: denies fever/chills/nausea/vomiting/chest or abdominal pain/cough/dyspnea/diarrhea. Otherwise see above. Constitutional Vitals: Vital Signs Temp Pulse Resp BP Pulse Ox 98.6 F 87 20 112/74 97 09/09/20 23:20 09/09/20 23:20 09/09/20 23:20 09/09/20 23:20 09/09/20 23:20 Period Temp Pulse Resp BP Sys/Morris Pulse Ox Last 24 Hr 97.3 F-99.0 F 75-87 20-20 108-112/70-74 96-97 Intake and Output 09/09/20 09/10/20 09/10/20 21:59 05:59 13:59 Intake Total 240 1160 Output Total 600 1300 Balance -360 -140 Weight 87.09 kg Intake & Output: Intake & Output 09/09/20 09/10/20 09/10/20 21:59 05:59 13:59 Intake Total 240 1160 Output Total 600 1300 Balance -360 -140 Weight 87.09 kg Intake: Oral 240 1160 Output: Void Amount 600 1300 Other: Meal Dinner Percent of Meal Consumed 100% Feeding Ability Assist with Tray Set Up Urine Appearance Clear Clear Urine Color Dark Yellow Bright Yellow Urine Odor Normal Normal Exam: General: Alert, Awake, No acute Distress, obese Eyes/N/T: EOMI, Head/Neck: neck supple, CV: RRR, No murmurs, normal s1/s2 Pulm: Clear b/l, no wheezing/rhonchi/rales Abd: soft, +BS x4 Ext: no clubbing/cyanosis/edema Neuro: Alert, no focal deficits, moves all extremities, Skin: warm/dry OBJ DATA Labs CBC & Chem 7: 09/10/20 05:13 09/10/20 05:13 Labs: Abnormal Lab Results 09/10/20 09/10/20 09/09/20 05:13 05:13 05:33 WBC RBC 3.67 L Neut % (Auto) Lymph % (Auto) Lymph # (Auto) 1.13 L [place] # (Auto) Absolute Neutrophils Sodium Creatinine 0.5 L Glucose 107 H Calcium 8.1 L 8.0 L Phosphorus 2.1 L GGT 71 H 68 H AST Total Protein 5.8 L Albumin 3.0 L Procalcitonin Urine Appearance Urine Protein Urine Ketones Urine Nitrate Urine Urobilinogen Urine RBC Urine WBC Urine Bacteria Urine Mucus 09/09/20 09/08/20 09/08/20 05:33 11:00 10:09 WBC RBC 3.77 L Neut % (Auto) 78.7 H Lymph % (Auto) 11.1 L Lymph # (Auto) 0.83 L [place] # (Auto) Absolute Neutrophils Sodium Creatinine Glucose Calcium Phosphorus GGT AST Total Protein Albumin Procalcitonin 0.41 H Urine Appearance Hazy A Urine Protein 30 A Urine Ketones 20 A Urine Nitrate Pos A Urine Urobilinogen 4.0 A Urine RBC 8 H Urine WBC 12 H Urine Bacteria Mod A Urine Mucus Many A 09/08/20 09/08/20 10:09 10:09 WBC 14.7 H RBC Neut % (Auto) 88.6 H Lymph % (Auto) 4.6 L Lymph # (Auto) 0.68 L [place] # (Auto) 0.96 H Absolute Neutrophils 13.02 H Sodium 132 L Creatinine Glucose 140 H Calcium Phosphorus GGT AST 40 H Total Protein Albumin Procalcitonin Urine Appearance Urine Protein Urine Ketones Urine Nitrate Urine Urobilinogen Urine RBC Urine WBC Urine Bacteria Urine Mucus Meds: Medications Acetaminophen (Tylenol) 650 mg PO Q4-6HP PRN; Protocol PRN Reason: Per Pain Protocol/Fever > 101 Last Admin: 09/09/20 13:35 Dose: 650 mg Documented by: Bisacodyl (Dulcolax) 10 mg [place] Q2-3DAYS PRN PRN Reason: Constipation Heparin Sodium (Porcine) (Heparin) 5,000 unit SQ Q12 [facility] Last Admin: 09/09/20 21:27 Dose: 5,000 unit Documented by: Hydromorphone HCl (Dilaudid) 0.5 mg IV Q4HP PRN; Protocol PRN Reason: Per Pain Protocol Last Admin: 09/09/20 07:58 Dose: 0.5 mg Documented by: Acetaminophen (Ofirmev) 650 mg in 65 mls @ 130 mls/hr IV Q6HP PRN; Protocol PRN Reason: Per Pain Protocol/Fever > 101 Last Admin: 09/09/20 21:30 Dose: 130 mls/hr Documented by: Magnesium Sulfate (Magnesium Sulfate) 2 gm in 50 mls @ 50 mls/hr IV UD PRN PRN Reason: MG = or < 1.7 Last Infusion: 09/09/20 12:47 Dose: Infused Documented by: Sodium Chloride (Sodium Chloride 0.9%) 1,000 mls @ 50 mls/hr IV .Q20H [facility] Stop: 09/11/20 03:01 Last Admin: 09/09/20 13:36 Dose: 50 mls/hr Documented by: Ceftriaxone Sodium 2 gm/ (Dextrose) 50 mls @ 100 mls/hr IV Q24H [facility]; Protocol Last Infusion: 09/09/20 10:48 Dose: Infused Documented by: Vancomycin HCl 1,500 mg/ (Sodium Chloride) 500 mls @ 333.3 mls/hr IV Q12H [facility] Last Admin: 09/09/20 21:50 Dose: 333.3 mls/hr Documented by: Iron Carb/Multivit/[employer]/Folic Acid (Multivitamin W/Minerals) 1 tab PO DAILY [facility] Last Admin: 09/09/20 07:56 Dose: 1 tab Documented by: Ketorolac Tromethamine (Toradol) 15 mg IV Q4-6HP PRN PRN Reason: Per Pain Protocol Stop: 09/10/20 12:42 Last Admin: 09/10/20 03:42 Dose: 15 mg Documented by: Melatonin (Melatonin 3mg Tablet) 3 mg PO HSP PRN PRN Reason: Insomnia Last Admin: 09/09/20 21:32 Dose: 3 mg Documented by: Ondansetron HCl (Zofran Odt) 4 mg SL Q4-6HP PRN; Protocol PRN Reason: Nausea And Vomiting Ondansetron HCl (Zofran) 4 mg IV Q4-6HP PRN; Protocol PRN Reason: Nausea And Vomiting Oxycodone/Acetaminophen ([place] 5-325 Mg) 1 tab PO Q4-6HP PRN; Protocol PRN Reason: Per Pain Protocol Last Admin: 09/10/20 03:37 Dose: 1 tab Documented by: Polyethylene Glycol (Miralax) 17 gm PO DAILYP PRN PRN Reason: Constipation Last Admin: 09/09/20 14:20 Dose: 17 gm Documented by: Potassium Chloride (Klor-Con) 40 meq PO DAILYP PRN PRN Reason: K+ < 3.5 Potassium/Phosphorus/Sodium (Neutra Phos) 2 packet PO DAILY PRN PRN Reason: PHOS <2.5 Last Admin: 09/09/20 10:16 Dose: 2 packet Documented by: Senna/Docusate Sodium (Senna Plus Tablet) 1 tab PO HS [facility] Last Admin: 09/09/20 21:32 Dose: 1 tab Documented by: Sodium Chloride (Saline Flush) 10 ml IV Q8 [facility] Last Admin: 09/10/20 04:47 Dose: Not Given Documented by: Vancomycin HCl (Vancomycin Per Pharmacy) 1 order IV UD [facility]; Protocol A/P Narrative A/P Narrative: A: *Severe sepsis: 2/2 focal nephritis & ?GPC -afebrile o/n; leukocytosis resolved *Acute bacterial nephritis/cystitis (GNB): -UC with GNB *?GPC: *obese Plan: -Continue antibiotic coverage, awaiting BC -Echocardiogram pending, f/u BC pending -Pain management on as needed Toradol/acetaminophen/opioids -ppx: lovenox Time Spent With Patient Time: Total time spent is greater than 50% in coordination of care (as documented) at patient's floor/unit and/or counseling patient:
[2020-09-10] MEDS: 0.9 % SODIUM CHLORIDE 1,000 ML IV SCH (08:10)
[2020-09-10] MEDS ORDERED: POLYETHYLENE GLYCOL 3350 17 GM PACKET PO ONE (08:24)
--- NOTE | 2020-09-10 08:54 | XRay Report ---
CLINICAL INFORMATION: Fever COMPARISON: None. TECHNIQUE: Portable FINDINGS: The heart size, mediastinum and pulmonary vessels are unremarkable. The lungs are clear. There are no effusions. The bones and soft tissues are within normal limits. IMPRESSION: Normal chest. Interpreted and Authenticated by: Kirit Nj 09/10/20
[2020-09-10] MEDS ORDERED: ENOXAPARIN 40 MG/0.4 ML SYRINGE SQ SCH (09:00)
[2020-09-10] MEDS: cefTRIAXone 2 GM in DEXTROSE 5% IN WATER 50 ML IV SCH (09:22)
[2020-09-10] MEDS: MULTIVIT,THER IRON,CA,FA & MIN 1 TABLET PO SCH (09:24)
[2020-09-10] MEDS ORDERED: VANCOMYCIN 1,000 MG in 0.9 % SODIUM CHLORIDE 250 ML IV SCH (10:00)
--- NOTE | 2020-09-10 10:07 | Discharge Summary ---
Discharge Provider Provider Patient information: Note initiated : 09/10/20 at 10:06 am Service Date, if different from initiated Date: [] Patient: Gala Krishnamurthy a 40 y/o F admitted on 09/08/20 for Flank Pain, Fever - Started . Chief Complaint: [] Date of admission: 09/08/20 14:40 Discharge date: 09/10/20 Primary care physician: Selvin Forbes Consults: 09/09/20 08:01 Consult to Physician [CONS] Routine Comment: Consulting Provider: Xavi Olsen Reason For Exam: Physician to Consult Discharge Meds Discharge Medications Home Medications levofloxacin 750 mg PO QDAY #4 tab 09/10/20 [Rx Last Taken Unknown] COURSE Hospital Course Hospital course: History of present illness: Ms. Krishnamurthy is a 40 year old F fairly healthy with no prior medical issues will start experiencing right-sided flank pain grade 8 out of 10/without radiation and made worse with movement sharp stabbing type along with associated nausea/loss of appetite over the last 5 days. She was seen at the urgent care and was prescribed nitrofurantoin for UTI. However symptoms continued to progress with fever, weakness, pain. With increasing concerns she presents to the ER. Initial work-up was consistent with sepsis with white count 14.7/pyuria. Patient was started on antibiotic coverage after CT abdomen revealed evidence of focal nephritis. Cultures were drawn. Hospital service was consulted. At the time of my evaluation patient is very anxious. She was able to answer most the questions. She endorses history as above. She denies hematuria/blood in her stool/prior hospitalization or any prior health issues. 09/09-patient started on antibiotic coverage. Overnight clinically improving. T-max 100.5. White count downtrending now at 7.5 however gram-positive bacteremia on blood cultures. Surveillance cultures pending. Likely source acute nephritis. Remains fairly anxious. Continue Rocephin/vancomycin until sensitivities available. Phosphorus 2.1, start replacement. 09/10 States hard to sleep in the hospital. Does have some right flank discomfort. Headaches, otherwise no complaints. E. coli pansensitive. Charge nurse clarified with microbiology - there has been no positive blood cultures thus far. I am not sure why there was thought to be a gram-positive cocci growing in her blood unless she was confused with a different patient. A: *Sepsis: 08/28 focal nephritis *Acute bacterial nephritis/cystitis (E. coli): *obese Discharge diagnosis: Nephritis cystitis sepsis Time Spent with Patient Time attestation: Total time spent providing and/or coordinating discharge services: Time spent: Greater than 30 minutes EXAM Constitutional Vitals: Temp Pulse Resp BP Pulse Ox 98.0 F 67 20 108/69 95 09/10/20 08:00 09/10/20 08:00 09/10/20 08:00 09/10/20 08:00 09/10/20 08:00 Discharge Data Data Completed and Pending Labs on day of discharge: Labs from last 24 hours 09/10/20 09/10/20 09/10/20 09:08 05:13 05:13 WBC 6.4 RBC 3.67 L Hgb 12.2 Hct 36.0 MCV 98.1 MCH 33.2 MCHC 33.9 RDW 12.6 Plt Count 183 MPV 10.0 Neut % (Auto) 68.1 Lymph % (Auto) 17.7 [place] % (Auto) 11.9 Eos % (Auto) 1.7 Baso % (Auto) 0.6 Lymph # (Auto) 1.13 L [place] # (Auto) 0.76 Eos # (Auto) 0.11 Baso # (Auto) 0.04 Absolute Neutrophils 4.34 Sodium 138 Potassium 3.9 Chloride 106 Carbon Dioxide 23 Anion Gap 9.0 BUN 6 Creatinine 0.5 L GFR Calculation 122 Glucose 107 H Uric Acid 3.7 Calcium 8.1 L Phosphorus 2.8 Magnesium 2.1 Total Bilirubin 0.2 Direct Bilirubin < 0.2 GGT 71 H AST 30 ALT 29 Alkaline Phosphatase 60 Lactate Dehydrogenase 209 Total Protein 5.8 L Albumin 3.0 L Globulin 2.8 Albumin/Globulin Ratio 1.1 Triglycerides 139 Vancomycin Trough Pending Preliminary micro results at discharge 09/09/20 08:32 Blood Culture - Preliminary Blood 09/09/20 08:18 Blood Culture - Preliminary Blood 09/08/20 12:50 Blood Culture - Preliminary Blood 09/08/20 12:35 Blood Culture - Preliminary Blood Discharge Plan Patient/Caregiver Discharge Instructions Activity: increase activity as tolerated Diet: Regular Diet Prescriptions: New levofloxacin 750 mg tablet 750 mg PO QDAY Qty: 4 RF: 0 Discontinued nitrofurantoin monohyd/m-cryst [Macrobid] 100 mg capsule 1 cap PO Q12H 7 Days Qty: 14 RF: 0 Follow Up Plan Follow up with: Selvin Forbes DO [Primary Care Provider] - Patient Disposition: Home, Self-Care Prognosis: Good Overall status at discharge: patient is progressing back to baseline Discharge Orders: Discharge Order (Routine); Ordered 09/10/20 Ordered By: Yfn Casas
[2020-09-10] MEDS: VANCOMYCIN 1,500 MG in 0.9 % SODIUM CHLORIDE 500 ML IV SCH (10:58)
[2020-09-10] MEDS ORDERED: MAGNESIUM CITRATE 300 ML ORAL.SOL PO ONE ×2 (12:11→13:14)
== END 2020-09-10 16:00 | disposition home or self-care (01) | DRG 871 ==
LOC: ED 09:37 → MEDSUR 14:40
PROVIDERS: ADMIT Internal Medicine; ATTEND Internal Medicine